=== PATIENT | male | born 1950 | race Caucasian/White ===

== ENCOUNTER 2017-02-22 06:49 | Inpatient (IN) | payer OTHER ==
[2017-02-12 12:09] LABS: BASOPHILS 0.8 %; BASOPHILS ABSOLUTE 0.06 10/3/uL (0.0-0.16); EOSINOPHILS 2.1 %; EOSINOPHILS ABSOLUTE 0.15 10/3/uL (0.0-0.53); HEMATOCRIT 47.7 % (40.0-51.0); HEMOGLOBIN 16.7 g/dL (13.6-17.8); IMMATURE GRANULOCYTES 0.1 %; IMMATURE GRANULOCYTES ABSOLUTE 0.01 10/3/uL (0.0-0.11); LYMPHOCYTES 25.4 %; LYMPHOCYTES ABSOLUTE 1.82 10/3/uL (0.67-4.30); MEAN CORPUSCULAR HEMOGLOB 32.9 pg (26.0-34.0); MEAN CORPUSCULAR VOLUME 93.9 fL (80-100); MEAN PLATELET VOLUME 10.2 fL (9.2-13.0); MONOCYTES 10.9 %; MONOCYTES ABSOLUTE 0.78 10/3/uL (0.21-1.20); NEUTROPHILS 60.7 %; NEUTROPHILS ABSOLUTE 4.34 10/3/uL (2.02-8.40); PLATELET COUNT 236 10/3/uL (150-400); RBC DISTRIBUTION WIDTH 12.7 % (12.0-16.0); RED CELL COUNT 5.08 10/6/uL (4.7-6.1); WHITE BLOOD CELLS 7.2 10/3/uL (4.5-10.5)
[2017-02-12 12:10] LABS: MANUAL DIFF NO %
[2017-02-12 12:16] LABS: INTERNATIONAL NORMAL RATI 1.1 UNITS (-)
[2017-02-12 12:38] LABS: ASCORBIC ACID (UR NOT ORDER) NEG (NEG); BILIRUBIN, URINE NEGATIVE (NEG); KETONE, URINE NEGATIVE (NEG); LEUKOCYTE ESTERASE(NOT OR NEG (NEG); WBC (NOT ORDERED) (RFLEX) < 1 (0-5)
[2017-02-12 13:09] LABS: % IRON SAT 22 % (20-50); A/G RATIO 0.9 (0.7-1.9); ALBUMIN 3.7 G/DL (3.5-5.0); ALKALINE PHOSPHATASE 88 U/L (45-117); BUN (BLOOD UREA NITROGEN) 13 MG/DL (6-23); CALCIUM, SERUM 8.7 MG/DL (8.5-10.4); CHLORIDE, SERUM 106 MMOL/L (96-112); CO2 (CARBON DIOXIDE) 27 MMOL/L (24-34); CREATININE 0.88 MG/DL (0.70-1.30); GFR AFRICAN AMERICAN 105 ML/MIN (>=60); GFR NON AFRICAN AMERICAN 91 ML/MIN (>=60); GLOBULIN 4.1 G/DL (2.5-4.1); GLUCOSE, SERUM 92 MG/DL (60-99); IRON BINDING CAPACITY 291 MCG/DL (250-450); IRON, SERUM 63 MCG/DL (35-150); SGOT(AST) 28 U/L (5-40); SGPT(ALT) 31 U/L (5-65); SODIUM, SERUM 138 MMOL/L (135-148); TOTAL BILIRUBIN 1.1 MG/DL (0-1.2); TOTAL PROTEIN 7.8 G/DL (6.0-8.5)
--- NOTE | ~2017-02-22 | DS ---
Discharge Summary [facility] [address] [facility] [place]. [address] NAME: GIL WHALEN : 54 STATUS : DIS IN PAT#: [id number] AGE: 66 ADM/REG DATE : 02/22/17 MR#: [id number] REPORT SERV DATE: 03/11/17 DICTATED BY: CHARLOTTE MCCANN DATE: 03/11/17 REPORT STATUS : Draft TRANSCRIBED BY: VALERIA DATE: 03/11/17 Data Collection from hospitalization DISCHARGE DIAGNOSES: 1. Coronary artery disease status post coronary artery bypass grafting. 2. Aortic valve stenosis status post aortic valve replacement. 3. Paroxysmal atrial fibrillation. 4. Anticoagulation. 5. Hypertension. 6. History of cerebrovascular accident. 7. Obesity. 8. Coronary atherosclerosis. 9. Vitamin B12 deficiency. 10.History of gastrointestinal bleed. CONSULTATIONS: Rubia Valencia M.D. PROCEDURES PERFORMED: Aortic valve replacement using a 25 mm pericardial valve (Magna Ease), coronary artery bypass grafting x4 with CARLSON to the LAD, reverse saphenous vein graft placed to the first diagonal, reverse saphenous vein graft sequenced to the posterior descending artery and posterolateral branch vessel, endoscopic vein harvest of the saphenous vein from the right leg, transesophageal echocardiography, 02/22/2017. PATHOLOGY: Aortic valve-calcific aortic valvular disease (no vegetations). MEDICATIONS: Cordarone 200 mg twice a day, Lotrel one capsule daily, aspirin 81 mg daily, Lipitor 40 mg at bedtime, vitamin D3 2000 units daily, Lasix 20 mg daily, [place] 5/325 one to two tablets every four hours as needed, Lopressor 25 mg twice a day, Coumadin 5 mg every evening. CONDITION AT DISCHARGE: Stable. DISPOSITION: The patient was discharged home on a low-sodium, low-cholesterol, cardiac diet with activities as instructed. He would follow up with me three weeks following discharge and would follow up with Dr. Stella Ceballos, 03/16/2017. He would follow up at the [facility], 03/02/2017 and at [facility], 04/05/2017. HOSPITAL COURSE: This is a 66-year-old man, who has a remote history of smoking in 2001. He also has a history of aortic valve stenosis with increasing episodes of fatigue. His most recent echocardiogram demonstrated reduced valve area of 0.82 square cm with a velocity across the valve of 416 cm/second and a mean gradient of 44 mmHg across the valve. With the symptoms of dyspnea and fatigue, he underwent cardiac catheterization, which demonstrated significant coronary artery disease. It was felt the patient would need to undergo coronary artery bypass grafting and aortic valve replacement. He was admitted to the hospital at this time for further evaluation and treatment. Upon admission, he was taken to the operating room, where he underwent the above-mentioned procedure. He tolerated this well and there were no complications. On postop day one, he Discharge Summary [place] [address] [facility] [place]. [address] NAME: GIL WHALEN : 54 STATUS : DIS IN PAT#: [id number] AGE: 66 ADM/REG DATE : 02/22/17 MR#: [id number] REPORT SERV DATE: 03/11/17 DICTATED BY: CHARLOTTE MCCANN DATE: 03/11/17 REPORT STATUS : Draft TRANSCRIBED BY: VAELRIA DATE: 03/11/17 was up sitting in a chair. His lungs were clear. He was on Levophed for hypotension. He was seen by Dr. Stella Ceballos. The patient had no chest pain or dyspnea. He was off pressors. He had decreased breath sounds in the bases. He was in a sinus rhythm. Statin agent continued. On the , he still had some postop soreness at the midline/chest tube site. He had no palpitations. He would get short of breath getting up to the chair or getting back to bed. He had no dyspnea at rest. His appetite was good. The patient developed atrial fibrillation. Oral amiodarone was being provided as well as metoprolol. He was on an insulin drip. We encouraged him to use incentive spirometry. He was seen by Dr. Sarah Valdez regarding hyperglycemia management. Hemoglobin A1c on admission was 5.7. He had never been diagnosed as a diabetic. He was felt to have an uneventful recovery. White blood cell count was 20.2. INR level was 1.3. The insulin IV infusion was going to be changed to subcutaneous insulin. This is not a diabetic patient. We hoped he could come off the insulin fairly soon during this hospitalization. On 02/25/2017, he had no palpitations. He had no edema. He still had some tachycardia that appeared to be sinus tachycardia. He continued to progress. Pacing wires were still in place. He had no chest pain. IV heparin drip continued. Coumadin was going to began. On the , his INR level was 1.2. He had no shortness of breath. He still had mild incisional pain. Over the next couple of days, he continued to do well. His pacing wires were removed. He was back in a sinus rhythm. Blood pressure was well controlled. Heparin drip was stopped. Amiodarone and beta-marichuy were continued. On 02/28/2017, his INR level was 1.3. He did have decreased breath sounds in his lung bases. Creatinine level was 0.93. Discharge instructions were given. Due to his improved and stable condition, he was discharged home with the above-stated instructions. Information collected by: Jill Rob I submit the above information as my discharge summary. TG/VALERIA Charlotte Mccann M.D. / [id number] CC: Rubia Motley D.O. F.A.C.P. C. Samuel Ledford, M.D.
--- NOTE | ~2017-02-22 | OP ---
Record Of Operation [address] [address] NAME: GIL WHALEN : 54 STATUS : DIS IN PAT#: [id number] AGE: 66 ADM/REG DATE : 02/22/17 MR#: [id number] REPORT SERV DATE: 02/28/17 DICTATED BY: CHARLOTTE MCCANN DATE: 02/28/17 REPORT STATUS : Draft TRANSCRIBED BY: MODL DATE: 02/28/17 DATE OF PROCEDURE: 02/22/2017 PREOPERATIVE DIAGNOSES: 1. Aortic valve stenosis. 2. Coronary artery disease. 3. Remote history of stroke. 4. Hypertension. 5. Hyperlipidemia. 6. Obesity. 7. History of gastrointestinal bleed. POSTOPERATIVE DIAGNOSES: 1. Aortic valve stenosis. 2. Coronary artery disease. 3. Remote history of stroke. 4. Hypertension. 5. Hyperlipidemia. 6. Obesity. 7. History of gastrointestinal bleed. PROCEDURE PERFORMED: 1. Aortic valve replacement using a 25 mm pericardial valve (Magna Ease). 2. Coronary artery bypass grafting x4, left internal mammary artery placed to left anterior descending, reverse saphenous vein graft placed to the first diagonal, reverse saphenous vein graft sequenced to the posterior descending artery and posterolateral branch vessel. 3. Endoscopic vein harvest, saphenous vein from right leg. 4. Transesophageal echocardiography. SURGEON: Charlotte Mccann MD. MAINTENANCE DIRECTOR: Lazarus Jenkins and Danyelle Schroeder. ANESTHESIA: General with Dr. Lauro Kapadia. ROVER TENDER: Dr. Terry Ceballos. PRIMARY CARE: Dr. Lawrence Whalen. INDICATIONS: This is a 66-year-old gentleman with a remote history of smoking in 2001. He also has a history of aortic valve stenosis with increasing episodes of fatigue. His most recent echocardiogram demonstrated reduced valve area of 0.82 sq cm with a velocity across the valve of 416 cm/sec and a mean gradient of 44 mmHg across the valve. With the symptoms of dyspnea and fatigue, he underwent a cardiac catheterization, which demonstrated significant coronary artery disease. We were asked to see the patient for possible coronary Record Of Operation [address] [address] NAME: GIL WHALEN : 54 STATUS : DIS IN PAT#: [id number] AGE: 66 ADM/REG DATE : 02/22/17 MR#: [id number] REPORT SERV DATE: 02/28/17 DICTATED BY: CHARLOTTE MCCANN DATE: 02/28/17 REPORT STATUS : Draft TRANSCRIBED BY: MODL DATE: 02/28/17 artery bypass grafting and aortic valve replacement. We discussed this operation with the patient's family and they wished to proceed. STS predicted mortality of 2.5%, morbidity- mortality 23% was shared with the family. FINDINGS AT OPERATION: 1. Cross-clamp 109 minutes. Total pump time 131 minutes. 2. The aortic valve had three leaflets. They were heavily calcified. Coronary anatomy was normal. There was no aortic root dilatation. 3. The aortic valve implanted was a 25 mm pericardial valve (Magna Ease). Sixteen Cor- Knots were used to secure the valve in place. 4. The LAD was 2 mm heavily diseased vessel. A 3 mm CARLSON was anastomosed to it with good runoff. 5. The first diagonal was 1.75 mm, moderately diseased. A 4 mm RSVG was anastomosed to it with good runoff. 6. The second obtuse marginal was too small to graft. 7. The posterior descending artery was 1.75 mm, moderately diseased. A 4 mm RSVG was anastomosed to it in a lucx-ur-zeti fashion with good runoff. 8. The posterolateral branch was 1.75 mm, moderately diseased. The end of the same 4 mm RSVG was anastomosed to it with good runoff. 9. The vein quality was good. All grafts had good Doppler signal at the end of the case. 10.RICHARD demonstrated good ventricular function. The prosthetic aortic valve was without perivalvular leak. There was no significant mitral insufficiency. PATHOLOGIC SPECIMENS: Include aortic valve leaflets. DESCRIPTION OF PROCEDURE: The patient was brought to the operating suite where general anesthesia was induced. Airway was secured with an endotracheal tube. Lines secured by Anesthesia. Martínez catheter was placed. The patient's chest, abdomen, groin, and legs prepped with Hibiclens and ChloraPrep and draped with Ioban sterile sheets. RICHARD probe was placed by Anesthesia and examination carried out as discussed above. The saphenous vein was harvested from the right leg using endoscopic technique. Briefly, the vein was cut directly down upon through a 2 cm incision placed in the medial aspect of the right knee. Then, using VasoView trocars, the vessel was dissected from the surrounding subcutaneous tissue and fat. The side branches were identified, ligated, divided with cautery. Once adequate length of vein had been dissected, a counter incision made up in the groin and in the lower leg where the vein was ligated, divided, and brought through the knee incision. The vein quality was good. The leg was made hemostatic and closed in layers with absorbable suture and skin closed in subcuticular fashion. Next, a midline sternal incision was made and the sternum opened with a saw. The left hemithorax was elevated and the endothoracic fascia was incised. Side branch of the LY were clipped and divided. Once the LY was completely dissected, the patient was anticoagulated with heparin and chest tube placed in the left pleural cavity. The LY was clipped and divided distally. There was good flow through the LY and its pedicle was infiltrated with papaverine. Record Of Operation [facility] [address] [facility] [place]. [address] NAME: GIL WHALEN : 54 STATUS : DIS IN PAT#: [id number] AGE: 66 ADM/REG DATE : 02/22/17 MR#: [id number] REPORT SERV DATE: 02/28/17 DICTATED BY: CHARLOTTE MCCANN DATE: 02/28/17 REPORT STATUS : Draft TRANSCRIBED BY: MODBenjamín DATE: 02/28/17 Next, the Syed retractor was placed in the pericardium and opened from the innominate vein and the diaphragm where it was T'd and tacked to sides of the chest wall. Cannulation pursestring sutures were placed and cannulation was carried out in routine manner. A retrograde cardioplegia cannula was placed in the coronary sinus. When all was in readiness, the patient was placed on cardiopulmonary bypass. Distal targets were marked out on the heart as described in the findings. Then, a heart support was placed. The aorta was crossclamped and an initial dose cold blood cardioplegia solution was given in a combination of antegrade and retrograde fashion and then in a retrograde manner following proximal anastomoses. Following the first dose cardioplegia, the heart was positioned for the posterolateral branch graft. Arteriotomy was made and the end of the vein graft was trimmed and anastomosed with 7-0 Prolene. This vein graft was measured back to the posterior descending artery where another arteriotomy was made and a corresponding venotomy made. Next, a qizv-sd-ymxc saphenous coronary anastomosis was constructed with 7-0 Prolene. This sequential vein graft was brought back to the right side of the ascending aorta where it was divided. Another dose of cardioplegia was given. We positioned the heart for the diagonal graft. Arteriotomy was made and the vein graft was trimmed and anastomosed with 7-0 Prolene. This vein graft was measured back to the left side of the ascending aorta where it was divided. We then positioned the heart for the LAD graft. Arteriotomy was made in the mid LAD. The LY was brought out of the left chest through a notch in the pericardium over the pulmonary artery. The LY was opened and anastomosed to the LAD with a running suture of 8-0 Prolene. The endothoracic fascia was tacked to the epicardium. Another dose of cardioplegia was given and the heart support was removed. An LV vent was then placed through the right superior pulmonary vein and directed across the mitral valve into the left ventricle and secured. We then turned our attention towards the aortic valve. A hockey-stick type aortotomy incision was made. The aortic valve was inspected. It had three leaflets that were heavily calcified. The coronary anatomy was normal. There was no aortic root aneurysm formation. The aortic valve leaflets were excised and the annulus debrided of all calcific material. We then irrigated the ascending aorta and left ventricle copiously to remove any particulate matter. The aortic valve was then sized and a 25 mm pericardial valve was selected. This was a Magna Ease pericardial valve. Next, interrupted horizontal mattress sutures of pledgeted 2-0 Ti-Cron placed circumferentially about the aortic valve annulus. Pledgets were placed on the ventricular side. The sutures were passed through the sewing cuff of the valve prosthesis. This was lowered into position. Each sutures individually secured and divided using a Cor-Knot device. A total of 16 Cor-Knot were used to secure the valve in place. Once lowered into position, the valve was without obstruction to the coronary arteries. Warming was begun. The aortotomy incision was closed in a two-layer fashion with running pledgeted suture of 5-0 Prolene. Record Of Operation [facility] [address] [facility] [place]. [address] NAME: GIL WHALEN : 54 STATUS : DIS IN [facility] WITH [facility]#: [id number] AGE: 66 ADM/REG DATE : 02/22/17 MR#: [id number] REPORT SERV DATE: 02/28/17 DICTATED BY: CHARLOTTE MCCANN DATE: 02/28/17 REPORT STATUS : Draft TRANSCRIBED BY: VALERIA DATE: 02/28/17 Next, three aortotomy incisions were made in the ascending aorta. Then, the proximal ends of each of the vein grafts were anastomosed to these sites with running sutures of 6-0 Prolene. The patient was placed in Trendelenburg and a final dose of warm blood cardioplegia was given in a retrograde fashion. Ventricular and atrial pacing wires were placed. Following the last dose cardioplegia and deairing of the aorta, the aortic cross clamp was removed. The distal and proximal anastomoses were inspected and made hemostatic. Doppler demonstrated good flow through the grafts. The heart was paced in AV sequential fashion and ventilations were begun. When the heart demonstrated good contractility, it was allowed to fill and eject. When deairing was completed, the patient was taken out of Trendelenburg and the LV vent removed and these pursestring sutures tied. The ascending aortic vent was removed and these pursestring sutures tied and reinforced. The patient was weaned from cardiopulmonary bypass with minimal inotropic support. The venous cannula was removed and these pursestring sutures tied. RICHARD examination demonstrated good ventricular function. The aortic valve prosthesis was well seated without perivalvular leak. There was no significant mitral insufficiency. Protamine was administered by Anesthesia, and following a period of hemodynamic stability, the aortic cannula was removed and these pursestring sutures tied and reinforced. The patient continued to do well and chest irrigated copiously with saline. Meticulous hemostasis was obtained. Hemasorb was placed along the cut edge of the sternum. Once hemostasis was assured, the pericardium was draped over the anterior surface of the heart and tacked into position. Doppler demonstrated good flow through the grafts following protamine administration. Then, chest tubes were placed and the sternum reapproximated with eight sternal wires. The clavipectoral fascia and linea alba closed with #1 Stratafix. The subcutaneous tissue was closed and skin closed in subcuticular fashion. The patient tolerated the procedure well. There were no complications. Sponge and needle counts were correct. DISPOSITION: The patient was left intubated, sedated, and transported to the intensive care unit in stable condition. KATLYN Charlotte Mccann M.D. / [id number] CC: Record Of Operation [place] [address] [place]. [address] NAME: GIL WHALEN : 54 STATUS : DIS IN PAT#: [id number] AGE: 66 ADM/REG DATE : 02/22/17 MR#: [id number] REPORT SERV DATE: 02/28/17 DICTATED BY: CHARLOTTE MCCANN DATE: 02/28/17 REPORT STATUS : Draft TRANSCRIBED BY: VALERIA DATE: 02/28/17 Rubia Motley D.O. F.A.C.P. C. Samuel Ledford, M.D.
--- NOTE | ~2017-02-22 | DS ---
Discharge Summary [place] [address] [place]. [address] NAME: GIL WHALEN : 54 STATUS : DIS IN PAT#: [id number] AGE: 66 ADM/REG DATE : 02/22/17 MR#: [id number] REPORT SERV DATE: 03/11/17 DICTATED BY: CHARLOTTE MCCANN DATE: 03/10/17 REPORT STATUS : Draft TRANSCRIBED BY: MODL DATE: 03/10/17 Data Collection from hospitalization DISCHARGE DIAGNOSES: 1. Coronary artery disease status post coronary artery bypass grafting. 2. Aortic valve stenosis status post aortic valve replacement. 3. Anticoagulation. 4. Hypertension. 5. History of cerebrovascular accident. 6. Obesity. 7. History of gastrointestinal bleed. DICTATION ENDS HERE Information collected by: Jill Rob I submit the above information as my discharge summary. ADORE/VALERIA Charlotte Mccann M.D. / [id number] CC: Rubia Motley D.O. F.A.C.P.
--- NOTE | ~2017-02-22 | CN ---
Consultation Report [facility] [address] [facility] [place]. [address] NAME: GIL WHALEN : 54 STATUS : ADM IN PAT#: [id number] AGE: 66 ADM/REG DATE : 02/22/17 MR#: [id number] REPORT SERV DATE: 02/24/17 DICTATED BY: SARAH SALAS DATE: 02/24/17 REPORT STATUS : Draft TRANSCRIBED BY: MODL DATE: 02/24/17 DATE OF CONSULTATION: REASON FOR CONSULTATION: Hyperglycemia management. HISTORY OF PRESENT ILLNESS: This is a 66-year-old male patient who came to the hospital to get elective cardiac bypass and aortic valve replacement. He had an uneventful surgical intervention done, and he was transferred to telemetry bed with insulin drip running around 3 units/hour for the last 24 hours. He has never been diagnosed to be diabetic. His A1c on this admission was 5.7. He does not have that much appetite currently after the surgery. He is eating half of the tray from this hospital food. He does not have any nausea or vomiting, not short of breath. Has not had a bowel movement yet. He is having uneventful recovery at this point. Again, he is not a diabetic. He was never been diagnosed with a diabetes either. REVIEW OF SYSTEMS: All 10 systems reviewed and negative. PAST MEDICAL HISTORY: 1. Hypertension. 2. Aortic stenosis which is status post aortic valve replacement. 3. Coronary artery disease, status post CABG x1. 4. Asthma, childhood. 5. Arthritis. 6. History of GI bleed with diverticulosis. 7. History of right inguinal hernia incarceration, status post surgery. 8. Hypertension. PAST SURGICAL HISTORY: 1. Right inguinal hernia repair and right knee total arthroplasty. 2. Colonoscopy. 3. Hydrocele. ALLERGIES: PENICILLIN. SOCIAL HISTORY: No smoking history. Occasionally drinks alcohol a few times a week. Denies any illicit drug use. MEDICATIONS AT HOME: 1. Amlodipine/benazepril 10/40 mg one capsule once a day. 2. Aspirin 81 mg once a day. 3. Lipitor 10 mg once at nighttime. Consultation Report [facility] [address] [facility] [place]. [address] NAME: GIL WHALEN : 54 STATUS : ADM IN PAT#: [id number] AGE: 66 ADM/REG DATE : 02/22/17 MR#: [id number] REPORT SERV DATE: 02/24/17 DICTATED BY: MARITZASARAH TRAVON DATE: 02/24/17 REPORT STATUS : Draft TRANSCRIBED BY: MODBenjamín DATE: 02/24/17 4. Hydrochlorothiazide 25 mg once a day. 5. Lopressor 25 mg twice a day. PHYSICAL EXAMINATION: VITAL SIGNS: Blood pressure is 137/81, pulse is 106, temperature is 98.7, and respiratory rate 16. GENERAL APPEARANCE: He is alert, awake, slightly obese. Not in acute distress. HEENT: Pupils are equal, round, and reactive to light. EOMs intact. NECK: Short neck status. I do not feel any nodes. LUNGS: Pretty clear to auscultation bilaterally. CARDIOVASCULAR: Regular rhythm and rate. ABDOMEN: Bowel sounds are present and soft. EXTREMITIES: He has a very trace pedal edema on both extremities. LABORATORY DATA: Showed sodium 137, potassium 4.7, chloride 108, BUN 22, creatinine of 1.02. WBC 20.2, hemoglobin of 14.7, hematocrit of 44.0, and platelets of 159. INR is 1.3. A1c was 5.7. ASSESSMENT AND PLAN: 1. Hyperglycemia postoperatively. 2. Post coronary artery bypass graft x4, postoperative day #2. 3. Status post aortic valve replacement, postoperative day #2. 4. Hypertension. 5. Morbid obesity. 6. History of cerebrovascular accident. 7. The patient's insulin IV infusion will be changed to subcutaneous insulin. The patient is not a diabetic patient. Hopefully, he can get off the insulin pretty soon during this hospitalization. I explained to the patient and who was in the room, voiced understanding. EKL/MODL Sarah Salas M.D. / [id number] CC: Rubia Motley D.O. F.A.C.P.
[~2017-02-22 06:49] MED LIST: ASAB PO; ASCRIPTIN PO; HYDROCHLOROT25 MG PO; LIPITOR10 PO; LOP25 PO; LOTREL1 CA4 PO; LOTREL1 CA5 PO; LOVENOX40 SC; MICARDIS HC1 PO; MOBIC15 MG PO; NAP500 PO; OXYCON10 PO; OXYCON20 PO; PCET PO; VITAMIN B-2100 MG PO; VITAMIN D31000 UNIT PO; [UNRECOGNIZED DRUG - REMARK]
[2017-02-22 20:23] LABS: BE (BASE EXCESS) -5.5 MEQ/L (0 +/- 2.5); CARBOXYHEMOGLOBIN 0.4 % (0-3); HCO3 (ACTUAL BICARBONATE) 19.7 MEQ/L (23-27); HEMOBLOGIN CONTENT 16.3 G/DL (14-18); INSTRUMENT SERIAL # 11843; METHEMOGLOBIN 0.6 % (0-3); MODE SIMV; O2 CONTENT 22.4 VOL% (18-24); OPERATOR ID 32193; PCO2 (CO2 TENSION) 38 MMHG (35-45); PO2 (O2 TENSION) 136 MMHG (79-93); SAMPLE Arterial; TIDAL VOLUME 750 ML; pH 7.33 (7.37-7.43)
[2017-02-22 20:46] LABS: BASOPHILS 0.1 %; BASOPHILS ABSOLUTE 0.02 10/3/uL (0.0-0.16); EOSINOPHILS 0.2 %; EOSINOPHILS ABSOLUTE 0.04 10/3/uL (0.0-0.53); HEMATOCRIT 45.1 % (40.0-51.0); HEMOGLOBIN 15.2 g/dL (13.6-17.8); IMMATURE GRANULOCYTES 0.4 %; IMMATURE GRANULOCYTES ABSOLUTE 0.07 10/3/uL (0.0-0.11); LYMPHOCYTES 4.5 %; LYMPHOCYTES ABSOLUTE 0.77 10/3/uL (0.67-4.30); MEAN CORPUS HGB CONC 33.7 g/dL (32.0-36.0); MEAN CORPUSCULAR HEMOGLOB 31.6 pg (26.0-34.0); MEAN CORPUSCULAR VOLUME 93.8 fL (80-100); MEAN PLATELET VOLUME 10.1 fL (9.2-13.0); MONOCYTES 6.2 %; MONOCYTES ABSOLUTE 1.06 10/3/uL (0.21-1.20); NEUTROPHILS 88.6 %; NEUTROPHILS ABSOLUTE 15.03 10/3/uL (2.02-8.40); RBC DISTRIBUTION WIDTH 12.6 % (12.0-16.0); RED CELL COUNT 4.81 10/6/uL (4.7-6.1)
[2017-02-22 20:47] LABS: MANUAL DIFF NO %; PLATELET COUNT 152 10/3/uL (150-400)
[2017-02-22 20:53] LABS: INTERNATIONAL NORMAL RATI 1.5 UNITS (-); PARTIAL THROMBO TIME 38.3 SEC (22.5-37.2)
[2017-02-22 20:55] LABS: PROTIME (NOT ORD) 17.9 SEC (12.0-14.5)
[2017-02-22 21:00] LABS: CHLORIDE, SERUM 113 MMOL/L (96-112); CREATININE 0.98 MG/DL (0.70-1.30); GFR AFRICAN AMERICAN 94 ML/MIN (>=60); GFR NON AFRICAN AMERICAN 81 ML/MIN (>=60); GLUCOSE, SERUM 91 MG/DL (60-99); POTASSIUM, SERUM 3.8 MMOL/L (3.5-5.3); SODIUM, SERUM 142 MMOL/L (135-148)
[2017-02-22 21:01] LABS: BUN (BLOOD UREA NITROGEN) 17 MG/DL (6-23); CO2 (CARBON DIOXIDE) 22 MMOL/L (24-34)
[2017-02-23 01:34] LABS: CARBOXYHEMOGLOBIN 0.6 % (0-3); DEVICE NC; HCO3 (ACTUAL BICARBONATE) 17.3 MEQ/L (23-27); HEMOBLOGIN CONTENT 16.4 G/DL (14-18); INSTRUMENT SERIAL # 11843; METHEMOGLOBIN 0.5 % (0-3); O2 CONTENT 21.5 VOL% (18-24); OPERATOR ID 32193; PCO2 (CO2 TENSION) 32 MMHG (35-45); PO2 (O2 TENSION) 76 MMHG (79-93); SAMPLE Arterial; pH 7.35 (7.37-7.43)
[2017-02-23 03:49] LABS: BASOPHILS 0 %; EOSINOPHILS 0 %; HEMATOCRIT 44.7 % (40.0-51.0); HEMOGLOBIN 15.7 g/dL (13.6-17.8); IMMATURE GRANULOCYTES 0.3 %; IMMATURE GRANULOCYTES ABSOLUTE 0.04 10/3/uL (0.0-0.11); LYMPHOCYTES 4.3 %; LYMPHOCYTES ABSOLUTE 0.63 10/3/uL (0.67-4.30); MANUAL DIFF NO %; MEAN CORPUS HGB CONC 35.1 g/dL (32.0-36.0); MEAN CORPUSCULAR HEMOGLOB 32.9 pg (26.0-34.0); MEAN CORPUSCULAR VOLUME 93.7 fL (80-100); MEAN PLATELET VOLUME 10.4 fL (9.2-13.0); MONOCYTES 3.4 %; MONOCYTES ABSOLUTE 0.49 10/3/uL (0.21-1.20); NEUTROPHILS ABSOLUTE 13.43 10/3/uL (2.02-8.40); PLATELET COUNT 153 10/3/uL (150-400); RBC DISTRIBUTION WIDTH 12.4 % (12.0-16.0); RED CELL COUNT 4.77 10/6/uL (4.7-6.1); WHITE BLOOD CELLS 14.6 10/3/uL (4.5-10.5)
[2017-02-23 03:57] LABS: INTERNATIONAL NORMAL RATI 1.3 UNITS (-); PROTIME (NOT ORD) 16.4 SEC (12.0-14.5)
[2017-02-23 04:02] LABS: BUN (BLOOD UREA NITROGEN) 19 MG/DL (6-23); CALCIUM, SERUM 8.3 MG/DL (8.5-10.4); CHLORIDE, SERUM 113 MMOL/L (96-112); CO2 (CARBON DIOXIDE) 22 MMOL/L (24-34); CREATININE 1.06 MG/DL (0.70-1.30); GFR AFRICAN AMERICAN 86 ML/MIN (>=60); GFR NON AFRICAN AMERICAN 74 ML/MIN (>=60); POTASSIUM, SERUM 4.1 MMOL/L (3.5-5.3); SODIUM, SERUM 141 MMOL/L (135-148)
[2017-02-23 04:03] LABS: GLUCOSE, SERUM 120 MG/DL (60-99)
[2017-02-23 17:12] LABS: HEMATOCRIT 43.1 % (40.0-51.0); HEMOGLOBIN 14.8 g/dL (13.6-17.8)
[2017-02-23 17:22] LABS: POTASSIUM, SERUM 4.1 MMOL/L (3.5-5.3)
[2017-02-24 03:32] LABS: HEMATOCRIT 41.6 % (40.0-51.0); HEMOGLOBIN 14.3 g/dL (13.6-17.8); MEAN CORPUS HGB CONC 34.4 g/dL (32.0-36.0); MEAN CORPUSCULAR HEMOGLOB 32.7 pg (26.0-34.0); MEAN CORPUSCULAR VOLUME 95.2 fL (80-100); MEAN PLATELET VOLUME 10.6 fL (9.2-13.0); PLATELET COUNT 159 10/3/uL (150-400); RBC DISTRIBUTION WIDTH 12.9 % (12.0-16.0); RED CELL COUNT 4.37 10/6/uL (4.7-6.1); WHITE BLOOD CELLS 20.2 10/3/uL (4.5-10.5)
[2017-02-24 03:33] LABS: MANUAL DIFF YES %
[2017-02-24 03:44] LABS: BUN (BLOOD UREA NITROGEN) 22 MG/DL (6-23); CALCIUM, SERUM 8.1 MG/DL (8.5-10.4); CHLORIDE, SERUM 108 MMOL/L (96-112); CO2 (CARBON DIOXIDE) 28 MMOL/L (24-34); CREATININE 1.02 MG/DL (0.70-1.30); GFR AFRICAN AMERICAN 90 ML/MIN (>=60); GFR NON AFRICAN AMERICAN 77 ML/MIN (>=60); GLUCOSE, SERUM 114 MG/DL (60-99); SODIUM, SERUM 137 MMOL/L (135-148)
[2017-02-24 03:57] LABS: BAND NEUTROPHILS 3 %; LYMPHOCYTES 6 %; LYMPHOCYTES ABSOLUTE (CALC) 1.21 10/3/uL (0.67-4.30); MONOCYTES 4 %; MONOCYTES ABSOLUTE (CALC) 0.81 10/3/uL (0.21-1.20); NEUTROPHILS ABSOLUTE (CALC) 18.18 10/3/uL (2.02-8.40); PLATELET ESTIMATE ADQ (ADEQUATE); RBC MORPHOLOGY NORM (NORMAL); SEGMENTED NEUTROPHIL (0) 87 %; TOTAL NUCLEATED CELLS 100
[2017-02-24 09:47] LABS: HEMOGLOBIN 14.7 g/dL (13.6-17.8)
[2017-02-24 16:12] LABS: HEMATOCRIT 41.6 % (40.0-51.0); HEMOGLOBIN 13.8 g/dL (13.6-17.8)
[2017-02-25 05:56] LABS: BASOPHILS 0.2 %; BASOPHILS ABSOLUTE 0.03 10/3/uL (0.0-0.16); EOSINOPHILS 0.1 %; EOSINOPHILS ABSOLUTE 0.01 10/3/uL (0.0-0.53); HEMATOCRIT 42.2 % (40.0-51.0); HEMOGLOBIN 14.2 g/dL (13.6-17.8); IMMATURE GRANULOCYTES 0.4 %; IMMATURE GRANULOCYTES ABSOLUTE 0.08 10/3/uL (0.0-0.11); LYMPHOCYTES 12.1 %; LYMPHOCYTES ABSOLUTE 2.16 10/3/uL (0.67-4.30); MEAN CORPUS HGB CONC 33.6 g/dL (32.0-36.0); MEAN CORPUSCULAR HEMOGLOB 32.7 pg (26.0-34.0); MEAN CORPUSCULAR VOLUME 97.2 fL (80-100); MEAN PLATELET VOLUME 10.8 fL (9.2-13.0); MONOCYTES 12.6 %; MONOCYTES ABSOLUTE 2.24 10/3/uL (0.21-1.20); NEUTROPHILS 74.6 %; PLATELET COUNT 147 10/3/uL (150-400); RBC DISTRIBUTION WIDTH 13.3 % (12.0-16.0); RED CELL COUNT 4.34 10/6/uL (4.7-6.1); WHITE BLOOD CELLS 17.8 10/3/uL (4.5-10.5)
[2017-02-25 05:57] LABS: MANUAL DIFF NO %
[2017-02-25 06:04] LABS: BUN (BLOOD UREA NITROGEN) 20 MG/DL (6-23); CALCIUM, SERUM 8.2 MG/DL (8.5-10.4); CHLORIDE, SERUM 106 MMOL/L (96-112); CO2 (CARBON DIOXIDE) 25 MMOL/L (24-34); CREATININE 0.94 MG/DL (0.70-1.30); GFR AFRICAN AMERICAN 99 ML/MIN (>=60); GFR NON AFRICAN AMERICAN 85 ML/MIN (>=60); GLUCOSE, SERUM 123 MG/DL (60-99); POTASSIUM, SERUM 4.5 MMOL/L (3.5-5.3); SODIUM, SERUM 137 MMOL/L (135-148)
[2017-02-25 13:41] LABS: BASOPHILS 0.1 %; BASOPHILS ABSOLUTE 0.02 10/3/uL (0.0-0.16); EOSINOPHILS 0.1 %; EOSINOPHILS ABSOLUTE 0.02 10/3/uL (0.0-0.53); HEMATOCRIT 42.4 % (40.0-51.0); HEMOGLOBIN 14.1 g/dL (13.6-17.8); IMMATURE GRANULOCYTES 0.4 %; IMMATURE GRANULOCYTES ABSOLUTE 0.06 10/3/uL (0.0-0.11); LYMPHOCYTES 11.4 %; LYMPHOCYTES ABSOLUTE 1.85 10/3/uL (0.67-4.30); MEAN CORPUS HGB CONC 33.3 g/dL (32.0-36.0); MEAN CORPUSCULAR HEMOGLOB 31.9 pg (26.0-34.0); MEAN CORPUSCULAR VOLUME 95.9 fL (80-100); MEAN PLATELET VOLUME 10.8 fL (9.2-13.0); MONOCYTES 11.5 %; MONOCYTES ABSOLUTE 1.86 10/3/uL (0.21-1.20); NEUTROPHILS 76.5 %; NEUTROPHILS ABSOLUTE 12.35 10/3/uL (2.02-8.40); PLATELET COUNT 139 10/3/uL (150-400); RBC DISTRIBUTION WIDTH 13.2 % (12.0-16.0); RED CELL COUNT 4.42 10/6/uL (4.7-6.1); WHITE BLOOD CELLS 16.2 10/3/uL (4.5-10.5)
[2017-02-25 13:42] LABS: MANUAL DIFF NO %
[2017-02-25 13:48] LABS: INTERNATIONAL NORMAL RATI 1.2 UNITS (-); PARTIAL THROMBO TIME 30.8 SEC (22.5-37.2)
[2017-02-26 05:12] LABS: BASOPHILS 0.1 %; BASOPHILS ABSOLUTE 0.02 10/3/uL (0.0-0.16); EOSINOPHILS 0.4 %; EOSINOPHILS ABSOLUTE 0.06 10/3/uL (0.0-0.53); HEMATOCRIT 40.1 % (40.0-51.0); HEMOGLOBIN 13.6 g/dL (13.6-17.8); IMMATURE GRANULOCYTES 0.4 %; IMMATURE GRANULOCYTES ABSOLUTE 0.06 10/3/uL (0.0-0.11); LYMPHOCYTES 14.1 %; LYMPHOCYTES ABSOLUTE 1.97 10/3/uL (0.67-4.30); MEAN CORPUS HGB CONC 33.9 g/dL (32.0-36.0); MEAN CORPUSCULAR HEMOGLOB 32.3 pg (26.0-34.0); MEAN CORPUSCULAR VOLUME 95.2 fL (80-100); MEAN PLATELET VOLUME 10.3 fL (9.2-13.0); MONOCYTES 11.8 %; MONOCYTES ABSOLUTE 1.65 10/3/uL (0.21-1.20); NEUTROPHILS 73.2 %; NEUTROPHILS ABSOLUTE 10.24 10/3/uL (2.02-8.40); PLATELET COUNT 161 10/3/uL (150-400); RBC DISTRIBUTION WIDTH 13.1 % (12.0-16.0); RED CELL COUNT 4.21 10/6/uL (4.7-6.1)
[2017-02-26 05:20] LABS: INTERNATIONAL NORMAL RATI 1.2 UNITS (-); PARTIAL THROMBO TIME 47.9 SEC (22.5-37.2); PROTIME (NOT ORD) 15.2 SEC (12.0-14.5)
[2017-02-26 05:21] LABS: MANUAL DIFF NO %
[2017-02-26 05:24] LABS: CALCIUM, SERUM 8.1 MG/DL (8.5-10.4); CHLORIDE, SERUM 104 MMOL/L (96-112); CO2 (CARBON DIOXIDE) 27 MMOL/L (24-34); CREATININE 0.85 MG/DL (0.70-1.30); GFR AFRICAN AMERICAN 107 ML/MIN (>=60); GFR NON AFRICAN AMERICAN 92 ML/MIN (>=60); GLUCOSE, SERUM 126 MG/DL (60-99); POTASSIUM, SERUM 4.2 MMOL/L (3.5-5.3); SODIUM, SERUM 136 MMOL/L (135-148)
[2017-02-26 05:28] LABS: BUN (BLOOD UREA NITROGEN) 13 MG/DL (6-23)
[2017-02-27 06:25] LABS: BASOPHILS 0.3 %; BASOPHILS ABSOLUTE 0.03 10/3/uL (0.0-0.16); EOSINOPHILS 2.2 %; EOSINOPHILS ABSOLUTE 0.25 10/3/uL (0.0-0.53); HEMATOCRIT 39.6 % (40.0-51.0); HEMOGLOBIN 13.3 g/dL (13.6-17.8); IMMATURE GRANULOCYTES 0.5 %; IMMATURE GRANULOCYTES ABSOLUTE 0.06 10/3/uL (0.0-0.11); LYMPHOCYTES 17.7 %; MEAN CORPUS HGB CONC 33.6 g/dL (32.0-36.0); MEAN CORPUSCULAR HEMOGLOB 31.7 pg (26.0-34.0); MEAN CORPUSCULAR VOLUME 94.3 fL (80-100); MEAN PLATELET VOLUME 9.8 fL (9.2-13.0); MONOCYTES 13.1 %; MONOCYTES ABSOLUTE 1.48 10/3/uL (0.21-1.20); NEUTROPHILS 66.2 %; NEUTROPHILS ABSOLUTE 7.46 10/3/uL (2.02-8.40); PLATELET COUNT 184 10/3/uL (150-400); RBC DISTRIBUTION WIDTH 13.2 % (12.0-16.0); WHITE BLOOD CELLS 11.3 10/3/uL (4.5-10.5)
[2017-02-27 06:26] LABS: MANUAL DIFF NO %
[2017-02-27 06:33] LABS: INTERNATIONAL NORMAL RATI 1.3 UNITS (-); PROTIME (NOT ORD) 16.2 SEC (12.0-14.5)
[2017-02-27 06:34] LABS: PARTIAL THROMBO TIME 69.1 SEC (22.5-37.2)
[2017-02-27 06:38] LABS: BUN (BLOOD UREA NITROGEN) 16 MG/DL (6-23); CALCIUM, SERUM 8.2 MG/DL (8.5-10.4); CHLORIDE, SERUM 106 MMOL/L (96-112); CO2 (CARBON DIOXIDE) 27 MMOL/L (24-34); CREATININE 0.87 MG/DL (0.70-1.30); GFR AFRICAN AMERICAN 106 ML/MIN (>=60); GFR NON AFRICAN AMERICAN 91 ML/MIN (>=60); GLUCOSE, SERUM 108 MG/DL (60-99); POTASSIUM, SERUM 4.1 MMOL/L (3.5-5.3); SODIUM, SERUM 139 MMOL/L (135-148)
[2017-02-28 05:33] LABS: BASOPHILS 0.3 %; BASOPHILS ABSOLUTE 0.03 10/3/uL (0.0-0.16); EOSINOPHILS 2.3 %; EOSINOPHILS ABSOLUTE 0.26 10/3/uL (0.0-0.53); HEMATOCRIT 39.7 % (40.0-51.0); HEMOGLOBIN 13.4 g/dL (13.6-17.8); IMMATURE GRANULOCYTES 0.6 %; IMMATURE GRANULOCYTES ABSOLUTE 0.07 10/3/uL (0.0-0.11); LYMPHOCYTES 13.1 %; MEAN CORPUS HGB CONC 33.8 g/dL (32.0-36.0); MEAN CORPUSCULAR VOLUME 94.7 fL (80-100); MEAN PLATELET VOLUME 9.9 fL (9.2-13.0); MONOCYTES ABSOLUTE 1.49 10/3/uL (0.21-1.20); NEUTROPHILS 70.7 %; NEUTROPHILS ABSOLUTE 8.07 10/3/uL (2.02-8.40); PLATELET COUNT 213 10/3/uL (150-400); RBC DISTRIBUTION WIDTH 13.4 % (12.0-16.0); RED CELL COUNT 4.19 10/6/uL (4.7-6.1); WHITE BLOOD CELLS 11.4 10/3/uL (4.5-10.5)
[2017-02-28 05:34] LABS: MANUAL DIFF NO %
[2017-02-28 05:40] LABS: INTERNATIONAL NORMAL RATI 1.3 UNITS (-); PROTIME (NOT ORD) 15.6 SEC (12.0-14.5)
[2017-02-28 05:51] LABS: BUN (BLOOD UREA NITROGEN) 17 MG/DL (6-23); CALCIUM, SERUM 8.5 MG/DL (8.5-10.4); CHLORIDE, SERUM 106 MMOL/L (96-112); CO2 (CARBON DIOXIDE) 25 MMOL/L (24-34); CREATININE 0.93 MG/DL (0.70-1.30); GFR AFRICAN AMERICAN 100 ML/MIN (>=60); GFR NON AFRICAN AMERICAN 86 ML/MIN (>=60); GLUCOSE, SERUM 104 MG/DL (60-99); POTASSIUM, SERUM 4.3 MMOL/L (3.5-5.3); SODIUM, SERUM 137 MMOL/L (135-148)
[2017-02-28] MEDS ORDERED: NORCO1 TA1 PO (09:48)
[2017-02-28] MEDS ORDERED: CORDARONE PO (09:49)
[2017-02-28] MEDS ORDERED: L20 PO (09:49)
[2017-02-28] MEDS ORDERED: C5 PO (09:50)
== END 2017-02-28 10:52 | disposition home or self-care (01) | DRG 220 ==
LOC: SDC/OF 06:49 → CVICU 18:41 → 5NO 02-23 18:04
PROVIDERS: Internal Medicine; Internal Medicine Cardiovascular Disease; Nurse Practitioner; Nurse Practitioner Adult Health; Nurse Practitioner Family; Thoracic Surgery (Cardiothoracic Vascular Surgery)
PROC: 021209W Bypass Coronary Artery, Three Arteries from Aorta with Autologous Venous Tissue, Open Approach (ICD-10-PCS; 2017-02-22)
PROC: 06BP4ZZ Excision of Right Saphenous Vein, Percutaneous Endoscopic Approach (ICD-10-PCS; 2017-02-22)
PROC: 5A1221Z Performance of Cardiac Output, Continuous (ICD-10-PCS; 2017-02-22)
PROC: B246ZZ4 Ultrasonography of Right and Left Heart, Transesophageal (ICD-10-PCS; 2017-02-22)
PROC: 02RF08Z Replacement of Aortic Valve with Zooplastic Tissue, Open Approach (ICD-10-PCS; principal; 2017-02-22 09:30)
PROC: 02100Z9 Bypass Coronary Artery, One Artery from Left Internal Mammary, Open Approach (ICD-10-PCS; 2017-02-22 09:30)
DX: I25.10 Atherosclerotic heart disease of native coronary artery without angina pectoris (principal); J98.11 Atelectasis; E66.01 Morbid (severe) obesity due to excess calories; I97.89 Other postprocedural complications and disorders of the circulatory system, not elsewhere classified; I10 Essential (primary) hypertension; I35.0 Nonrheumatic aortic (valve) stenosis; E78.5 Hyperlipidemia, unspecified; R73.9 Hyperglycemia, unspecified; Z68.37 Body mass index [BMI] 37.0-37.9, adult; Z86.73 Personal history of transient ischemic attack (TIA), and cerebral infarction without residual deficits; I48.91 Unspecified atrial fibrillation; E53.8 Deficiency of other specified B group vitamins
CPT/HCPCS: 36415; 71010; 71020; 80048; 80053; 81001; 82330; 82803; 82805; 82947; 82962; 83036; 83540; 83550; 83735; 84132; 84295; 85014; 85018; 85025; 85347; 85610; 85730; 86850; 86900; 86901; 86920; 87641; 88305; 93005; 93312; 93320; 93325; 94002; 94640; 94770; A9270-GY; C1713; C1769; C1894; J0282; J0690; J1644; J1940; J2150; J2250; J2370; J2440; J2720; J2795; J2930; J3010; J3473; J3475; J3480; P9045; P9047